=== PATIENT | male | born 1970 | race African-American/Black ===

== ENCOUNTER 2016-11-07 19:02 | Emergency (ER) | payer OTHER ==
[~2016-11-07 19:02] MED LIST: ALBUTEROL17 GM INH; ALLERGY RELIEF10 M2 PO; CIPRO PO; EC-NAPROSYN375 MG PO; FLEXERIL10 MG PO; IBUPROFEN800 MG PO; MEDROL4 MG/DOSE- PO; NO MEDICATIONS; PREDNISONE PO; RANITIDINE HCL300 MG PO; ROBITUSSIN NIG118 ML PO; TRIAMCINOLONE AC1 GM EXT; TRIAMCINOLONE AC1 GM TOP; VISTARIL PO
== END 2016-11-07 20:12 | disposition home or self-care (01) ==
LOC: SED 19:02
DX: M54.16 Radiculopathy, lumbar region (principal); I49.3 Ventricular premature depolarization; R20.0 Anesthesia of skin; F17.200 Nicotine dependence, unspecified, uncomplicated; Z91.018 Allergy to other foods
CPT/HCPCS: 99283

== ENCOUNTER 2016-11-30 14:07 | Emergency (ER) | payer OTHER ==
[2016-11-30] MEDS ORDERED: NO MEDICATIONS (14:17)
[2016-11-30 15:09] LABS: BASOPHIL% 0.7 % (0-2.5); EOSINOPHIL% 0.3 % (0.0-7.0); HEMATOCRIT 37.3 % (38.0-50.0); HEMOGLOBIN 12.5 gm/dL (13.0-16.0); LYMPHOCYTE# 1.8 X10e3 (1.0-3.5); LYMPHOCYTE% 27.9 % (17.0-45.0); MEAN CELL VOLUME 87.2 FL (83-96); MEAN CORPUSCULAR HEMOGLOBIN 29.3 PG (28-34); MEAN CORPUSCULAR HGB CONC 33.6 g/dL (30-36); MEAN PLATELET VOLUME 8.7 FL (6.5-11.5); MONOCYTE# 0.5 X10e3 (0-1.0); MONOCYTE% 7.7 % (3.0-12.0); NEUTROPHIL% 63.4 % (40-75); PLATELET COUNT 122 X10e3 (140-420); RED BLOOD COUNT 4.28 X10e (3.90-5.60); RED CELL DISTRIBUTION WIDTH 14.2 % (11.0-15.5); WHITE BLOOD COUNT 6.3 X10e3 (4.0-10.5)
[2016-11-30 15:22] LABS: DIFF IND NO
[2016-11-30 15:25] LABS: POC - CKMB <1.0 ng/mL (0.0-7.9); POC - TROPONIN <0.05 ng/mL (<=0.05)
[2016-11-30 15:35] LABS: ALKALINE PHOSPHATASE 44 U/L (32-92); ALT (SGPT) 63 U/L (10-40); AST (SGOT) 79 U/L (10-42); BILIRUBIN, DIRECT 0.2 mg/dL (0.0-0.2); BILIRUBIN,INDIRECT 1.1 mg/dL (0.0-0.9); BILIRUBIN,TOTAL 1.3 mg/dL (0.2-2.0); BLOOD UREA NITROGEN 11 mg/dL (9-23); BUN/CREATININE RATIO 18.33; CALCIUM SERUM 9.4 mg/dL (8.4-10.2); CARBON DIOXIDE 28 mmol/L (22-31); CHLORIDE 96 mmol/L (100-111); CREATININE SERUM 0.6 mg/dL (0.6-1.4); GLOM FILT RATE Estimated 140.8 mL/min (>60); GLUCOSE FASTING 89 mg/dL (70-110); LIPASE 29 U/L (22-51); MAGNESIUM 1.5 mg/dL (1.6-3.0); POTASSIUM 3.3 mmol/L (3.5-5.1); PROTEIN TOTAL SERUM 8.3 g/dL (6.0-8.3); SODIUM 136 mmol/L (135-145)
[2016-11-30 15:36] LABS: ALCOHOL BLOOD <5 mg/dL (0)
[2016-11-30 16:25] LABS: URINE APPEARANCE CLEAR; URINE BLOOD NEG (NEG); URINE COLOR DK YELLOW; URINE KETONE TRACE (NEG); URINE LEUKOCYTE ESTERASE NEG (NEG); URINE NITRATE NEG (NEG); URINE PH 8.5 (5-8); URINE PROTEIN 1+ (NEG)
[2016-11-30 16:41] LABS: MICRO INDICATED? YES; URINE BILIRUBIN NEG (NEG); URINE GLUCOSE 50 MG/DL (NORM); URINE SOURCE CLEAN CATCH
[2016-11-30 16:46] LABS: CULTURE INDICATED? YES; URINE BACTERIA NEG (NEG); URINE MUCUS PRESENT; URINE RBC 0-2 /[HPF] (0-2); URINE SQUAMOUS EPITHELIAL CELL OCCAS /[HPF]; URINE TRANSITIONAL EPI CELLS OCCAS /[HPF]
== END 2016-11-30 17:23 | disposition home or self-care (01) ==
LOC: SED 14:07
PROVIDERS: Emergency Medicine
DX: E87.6 Hypokalemia (principal); R11.2 Nausea with vomiting, unspecified; R19.7 Diarrhea, unspecified; F17.200 Nicotine dependence, unspecified, uncomplicated; Z91.010 Allergy to peanuts
CPT/HCPCS: 36415; 80048; 80076; 81003; 82553; 83690; 83735; 84484; 85025; 87086; 99283; G0480; J2405

== ENCOUNTER 2017-01-03 21:20 | Emergency (ER) | payer OTHER ==
[~2017-01-03] VITALS: Ht 180.3 cm; Wt 76.2 kg
[2017-01-03 22:26] LABS: BASOPHIL# 0.1 X10e3 (0-0.3); BASOPHIL% 1.1 % (0-2.5); EOSINOPHIL# 0.1 X10e3 (0-0.7); EOSINOPHIL% 0.6 % (0.0-7.0); HEMATOCRIT 35.2 % (38.0-50.0); HEMOGLOBIN 11.7 gm/dL (13.0-16.0); LYMPHOCYTE# 2.2 X10e3 (1.0-3.5); LYMPHOCYTE% 25.7 % (17.0-45.0); MEAN CELL VOLUME 88.9 FL (83-96); MEAN CORPUSCULAR HEMOGLOBIN 29.6 PG (28-34); MEAN CORPUSCULAR HGB CONC 33.3 g/dL (30-36); MEAN PLATELET VOLUME 9.4 FL (6.5-11.5); MONOCYTE# 0.7 X10e3 (0-1.0); MONOCYTE% 8.4 % (3.0-12.0); NEUTROPHIL# 5.5 X10e3 (1.5-7.1); NEUTROPHIL% 64.2 % (40-75); PLATELET COUNT 135 X10e3 (140-420); RED BLOOD COUNT 3.96 X10e (3.90-5.60); RED CELL DISTRIBUTION WIDTH 14.2 % (11.0-15.5); WHITE BLOOD COUNT 8.6 X10e3 (4.0-10.5)
[2017-01-03 22:27] LABS: DIFF IND NO
[2017-01-03 22:29] LABS: URINE SOURCE CLEAN CATCH
[2017-01-03 22:31] LABS: URINE APPEARANCE CLEAR; URINE BLOOD NEG (NEG); URINE COLOR YELLOW; URINE GLUCOSE 50 MG/DL (NORM); URINE KETONE 1+ (NEG); URINE LEUKOCYTE ESTERASE NEG (NEG); URINE NITRATE NEG (NEG); URINE PROTEIN 1+ (NEG); URINE SPECIFIC GRAVITY 1.025 (1.003-1.035)
[2017-01-03 22:34] LABS: MICRO INDICATED? NO; URINE BILIRUBIN NEG (NEG)
[2017-01-03 22:42] LABS: ALBUMIN SERUM 4.9 g/dL (3.5-5.0); BILIRUBIN,TOTAL 0.8 mg/dL (0.2-2.0); BUN/CREATININE RATIO 15.71; CALCIUM SERUM 9.4 mg/dL (8.4-10.2); CREATININE SERUM 0.7 mg/dL (0.6-1.4); GLOM FILT RATE Estimated 131.2 mL/min (>60); POTASSIUM 3.1 mmol/L (3.5-5.1); PROTEIN TOTAL SERUM 8.1 g/dL (6.0-8.3)
== END 2017-01-04 01:16 | disposition home or self-care (01) ==
LOC: SED 21:20
PROVIDERS: Nurse Practitioner
DX: R39.11 Hesitancy of micturition (principal); F10.20 Alcohol dependence, uncomplicated; E87.6 Hypokalemia; Z91.010 Allergy to peanuts
CPT/HCPCS: 36415; 80053; 81003; 85025; 96365; 99283; J3411